=== PATIENT | male | born 1940 | race Caucasian/White ===

== ENCOUNTER 2018-04-17 05:43 | Day surgery (SDC) | payer MEDICARE, BC ==
[2018-04-14 11:37] LABS: BASOPHILS % (AUTO) 0.5 % (0-1); EOSINOPHILS # (AUTO) 0.3 X10'3 (0-0.9); EOSINOPHILS % (AUTO) 4.4 % (0-6); LYMPHOCYTES # (AUTO) 1.8 X10'3 (1.1-4.8); LYMPHOCYTES % (AUTO) 24.1 % (21-51); MEAN CORPUSCULAR HEMOGLOBIN 29.2 PG (27.0-31.0); MEAN CORPUSCULAR HGB CONC 33.7 % (33.0-36.5); MEAN CORPUSCULAR VOLUME 86.7 FL (78-98); MONOCYTES # (AUTO) 0.4 X10'3 (0-0.9); MONOCYTES % (AUTO) 4.9 % (2-12); NEUTROPHILS # (AUTO) 5.1 X10'3 (1.8-7.7); NEUTROPHILS % (AUTO) 66.1 % (42-75); PRE OP HEMATOCRIT 42.6 % (42.0-52.0); PRE OP HEMOGLOBIN 14.4 g/dL (14.0-17.9); PRE OP PLATELET COUNT 231 X10'3 (140-440); RED BLOOD COUNT 4.92 X10'6 (4.70-6.10); RED CELL DISTRIBUTION WIDTH 13.3 % (11.5-14.5)
[2018-04-14 11:48] LABS: PRE OP PROTIME 9.9 SECONDS (9.0-12.0)
[2018-04-14 11:53] LABS: ALBUMIN 3.7 G/DL (3.4-5.0); ALBUMIN/GLOBULIN RATIO 1.1 (1.1-1.5); ALKALINE PHOSPHATASE 74 IU/L (46-116); BLOOD UREA NITROGEN 11 MG/DL (7-18); BUN/CREATININE RATIO 10.8 (5.4-32.0); CALCIUM 8.9 MG/DL (8.5-10.1); CHLORIDE 107 MMOL/L (99-107); CREATININE 1.02 MG/DL (0.60-1.10); PRE OP ALT 27 U/L (30-65); PRE OP ANION GAP 5 (8-16); PRE OP AST 10 U/L (10-37); PRE OP BILIRUB, TOTAL 0.4 MG/DL (0.0-1.0); PRE OP GLUCOSE 193 MG/DL (70-104); PRE OP POTASSIUM 3.9 MMOL/L (3.4-5.1); PRE OP SODIUM 142 MMOL/L (135-145); TOTAL CARBON DIOXIDE 29.6 MMOL/L (24-32); eGFR 71 ML/MIN
[2018-04-14 14:18] LABS: HEMOGLOBIN A1C 5.6 % (4.5-6.2)
[~2018-04-17] VITALS: Ht 172.7 cm; Wt 90.6 kg
[2018-04-17] VITALS (23 sets, daily range): BP systolic 95–129; BP diastolic 41–89
[~2018-04-17 05:43] MED LIST: ASPI81TA52 PO; OXYB10TA PO; SIMV40TA4 PO; ceFAZolin 1GM/D5W- ADD-VANTAGE 50 ML IV ONE; famotidine 20mg tablet PO ONE
[2018-04-17] MEDS ORDERED: LIDOcaine 1% (10mg/ml) 2ml vial ONE (06:07)
[2018-04-17] MEDS: ringers solution, lacted 1,000 ML IV SCH ×2 (06:15→12:11)
[2018-04-17] MEDS ORDERED: neomy sulf/polymyxin B sulf. GU irrigation 1ml amp IR ONE (06:40)
[2018-04-17] MEDS ORDERED: MIDAZolam 5mg/5ml vial ONE (07:33)
[2018-04-17] MEDS ORDERED: fentaNYL/PF 50MCG/1 ML 2ML syringe ONE (07:33)
[2018-04-17] MEDS ORDERED: BUPIVAcaine/PF 7.5mg/ml (0.75%) 10ml vial ONE (07:36)
[2018-04-17] MEDS ORDERED: ringers solution, lacted 1,000 ML IV SCH (08:17)
[2018-04-17] MEDS ORDERED: meperidine/PF 25mg/ml syringe IV PRN ×3 (08:20)
[2018-04-17] MEDS ORDERED: ondansetron/PF 4mg/2ml inj IV PRN ×2 (08:20→09:05)
[2018-04-17] MEDS ORDERED: proCHLORperazine 10 MG/2 ml inj IV PRN ×2 (08:20→09:05)
[2018-04-17] MEDS ORDERED: morphine 4 MG/ML inj SYRINge IV PRN ×2 (08:20)
[2018-04-17] MEDS ORDERED: acetaminophen 325mg tablet PO PRN (09:05)
[2018-04-17] MEDS ORDERED: mag hydrox/Alum hydrox/simeth 30ml oral suspension PO PRN (09:05)
[2018-04-17] MEDS ORDERED: oxybutynin 5mg tablet PO PRN (09:05)
[2018-04-17] MEDS ORDERED: zolpidem 5mg tablet PO PRN (09:05)
[2018-04-17] MEDS ORDERED: HYDROcodone/acetaminophen 10/325mg tab PO PRN (09:20)
[2018-04-17] MEDS ORDERED: ampicillin inj 1 GM in normal saline 100ml IV soln 100 ML IV ONE (12:20)
[2018-04-17] MEDS ORDERED: gentamicin inj 160 MG in normal saline 100ml IV soln 100 ML IV ONE (12:20)
[2018-04-17] MEDS: potassium cl 20mEq in 1/2 NS 1,000 ML IV SCH ×2 (15:59→17:01)
[2018-04-17] MEDS ORDERED: ceFAZolin inj. 1,000 MG in dextrose 5%-water 50ml 50 ML IV SCH (16:00)
[2018-04-17] MEDS: oxybutynin 5mg tablet PO SCH (20:04)
[2018-04-17] MEDS: docusate sod 100mg capsule PO SCH (20:04)
[2018-04-17] MEDS ORDERED: atorvastatin 10mg tablet PO SCH (21:00)
[2018-04-17] MEDS: ampicillin inj 1 GM in normal saline 100ml IV soln 100 ML IV SCH ×2 (21:18→23:20)
[2018-04-17] MEDS: gentamicin inj 80 MG in normal saline 100ml IV soln 98 ML IV SCH (23:21)
[2018-04-18] VITALS: BP_SYST 118; BP_SYST 126; BP_DIAS 59; BP_DIAS 64
[2018-04-18] MEDS ORDERED: gentamicin 40 MG/1 ML inj IV SCH
[2018-04-18] MEDS: potassium cl 20mEq in 1/2 NS 1,000 ML IV SCH ×2 (01:28→09:01)
[2018-04-18 05:54] LABS: BASOPHILS % (AUTO) 0.3 % (0-1); EOSINOPHILS # (AUTO) 0.3 X10'3 (0-0.9); EOSINOPHILS % (AUTO) 2.8 % (0-6); HEMATOCRIT 38.5 % (42.0-52.0); HEMOGLOBIN 13.3 g/dl (14.0-17.9); LYMPHOCYTES # (AUTO) 1.7 X10'3 (1.1-4.8); MEAN CORPUSCULAR HEMOGLOBIN 29.3 PG (27.0-31.0); MEAN CORPUSCULAR HGB CONC 34.6 % (33.0-36.5); MEAN CORPUSCULAR VOLUME 84.9 FL (78-98); MEAN PLATELET VOLUME 8.3 FL (7.4-10.4); MONOCYTES # (AUTO) 0.7 X10'3 (0-0.9); MONOCYTES % (AUTO) 6.7 % (2-12); NEUTROPHILS # (AUTO) 8.1 X10'3 (1.8-7.7); NEUTROPHILS % (AUTO) 74.2 % (42-75); PLATELET COUNT 227 X10'3 (140-440); RED BLOOD COUNT 4.54 X10'6 (4.70-6.10); RED CELL DISTRIBUTION WIDTH 13.2 % (11.5-14.5); WHITE BLOOD COUNT 10.9 X10'3 (4.5-11.0)
[2018-04-18 06:06] LABS: ALBUMIN 3.2 G/DL (3.4-5.0); ANION GAP 8 (8-16); BLOOD UREA NITROGEN 12 MG/DL (7-18); BUN/CREATININE RATIO 12.5 (5.4-32.0); CALCIUM 8.7 MG/DL (8.5-10.1); CHLORIDE 108 MMOL/L (99-107); CREATININE 0.96 MG/DL (0.60-1.10); GLUCOSE 104 MG/DL (70-104); POTASSIUM 4.1 MMOL/L (3.5-5.1); SODIUM 142 MMOL/L (135-145); eGFR 76 ML/MIN
[2018-04-18] MEDS ORDERED: DOCU-28 PO (07:21)
[2018-04-18] MEDS ORDERED: pantoprazole 40mg Tablet.DR PO SCH (07:30)
[2018-04-18] MEDS ORDERED: SULF1TAB49 PO (07:43)
[2018-04-18 08:00] VITALS: BP 146/65
[2018-04-18] MEDS: oxybutynin 5mg tablet PO SCH (08:34)
[2018-04-18] MEDS: docusate sod 100mg capsule PO SCH (08:34)
[2018-04-18] MEDS: ampicillin inj 1 GM in normal saline 100ml IV soln 100 ML IV SCH (08:34)
[2018-04-18] MEDS: gentamicin inj 80 MG in normal saline 100ml IV soln 98 ML IV SCH (09:34)
[2018-04-18] MEDS ORDERED: SULF-14 PO (10:32)
== END 2018-04-18 11:06 | disposition home or self-care (01) ==
LOC: PAS 05:43 → SUR 3N 11:22 → PAS 04-18 11:06
PROVIDERS: ATTEND Urology
DX: N40.0 Benign prostatic hyperplasia without lower urinary tract symptoms (principal); N32.0 Bladder-neck obstruction; N32.89 Other specified disorders of bladder; Z98.890 Other specified postprocedural states; Z79.82 Long term (current) use of aspirin; Z79.899 Other long term (current) drug therapy; F41.9 Anxiety disorder, unspecified; F32.9 Major depressive disorder, single episode, unspecified; Z72.89 Other problems related to lifestyle; Z87.440 Personal history of urinary (tract) infections
CPT/HCPCS: 36415; 52630; 80048; 80053; 82948; 83036; 83605; 85025; 85610; 85730; 86885; 86900; 86901; 87040; 93005; A4346; A4615; J0290; J0690; J1580; J2250; J3010; J3490; J7030; J7060; J7120; 88305; A4402